=== PATIENT | male | born 1950 | race Caucasian/White ===

== ENCOUNTER 2016-12-23 10:43 | Emergency (ER) | payer MEDICARE, OTHER ==
[2016-12-23 10:51] VITALS: BP 140/95
--- NOTE | 2016-12-23 11:16 | UC ---
Lower Extremity/Ankle HPI - HPI Summary HPI Summary: gout in right foot. has a history of the same. has had pain since yesterday. denies trauma . has had multiple times. pt indulged in steak, seafood and dessert this past week with beer [ End ] - History of Current Complaint Chief Complaint: UCLowerExtremity Stated Complaint: RIGHT FOOT COMPLAINT Time Seen by Provider: 12/23/16 11:09 Hx Obtained From: Patient Onset/Duration: Sudden Onset - Allergies/Home Medications Allergies/Adverse Reactions: Allergies Allergy/AdvReac Type Severity Reaction Status Date / Time Penicillins Allergy Intermediate Hives Verified 12/23/16 10:52 PMH/Surg Hx/FS Hx/Imm Hx Previously Healthy: Yes - Surgical History Surgical History: Yes Surgery Procedure, Year, and Place: hernia repair - Family History Known Family History: Positive: Unknown Negative: Blood Disorder - Social History Occupation: Employed Full-time Lives: With Family Alcohol Use: Weekly Alcohol Amount: few times a week Substance Use Type: None Smoking Status (MU): Never Smoked Tobacco Review of Systems Constitutional: Negative Skin: Negative Eyes: Negative ENT: Negative Respiratory: Negative Cardiovascular: Negative Gastrointestinal: Negative Genitourinary: Negative Motor: Negative Neurovascular: Negative Musculoskeletal: Arthralgia Neurological: Negative Psychological: Negative All Other Systems Reviewed And Are Negative: Yes Physical Exam Triage Information Reviewed: Yes Appearance: Well-Appearing, No Pain Distress Vital Signs: Initial Vital Signs Temp 97.7 F 12/23/16 10:49 Pulse 78 12/23/16 10:49 Resp 14 12/23/16 10:49 BP 140/95 12/23/16 10:49 Pulse Ox 99 12/23/16 10:49 Eye Exam: Normal ENT Exam: Normal Dental Exam: Normal Neck exam: Normal Neck: Positive: 1 Respiratory Exam: Normal Cardiovascular Exam: Normal Musculoskeletal Exam: Normal Neurological Exam: Normal Psychological Exam: Normal Skin Exam: Normal Skin: Positive: Other - right large toe with redness and mild swelling and tenderness to palpation Lower Extremity Course/Dx - Course Course Of Treatment: he will d/w PCP allopurinol and other treatment as he is to go to [place] soon and wants to eat seafood - Differential Dx/Diagnosis Differential Diagnosis/HQI/PQRI: Gout, Sprain, Strain Provider Diagnoses: gout right foot Discharge - Discharge Plan Condition: Good Disposition: HOME Prescriptions: Indomethacin CAP* [Indocin CAP*] 50 mg PO TID PRN #30 cap PRN Reason: Pain Patient Education Materials: Low Purine Diet (ED), Gout (ED) Referrals: Jc Turcios MD [Primary Care Provider] - 3 Days
== END 2016-12-23 11:24 | disposition home or self-care (01) ==
LOC: UCCORT 10:43
DX: M10.071 Idiopathic gout, right ankle and foot (principal); Z88.0 Allergy status to penicillin
CPT/HCPCS: 99212; G0463

== ENCOUNTER 2017-03-05 07:55 | Emergency (ER) | payer MEDICARE, OTHER ==
[2017-03-05 08:15] VITALS: BP 135/83
[2017-03-05] MEDS ORDERED: Indomethacin CAP* 25 MG CAP PO ONE (08:34)
--- NOTE | 2017-03-05 08:53 | RAD ---
HISTORY: Right thumb pain, fall COMPARISONS: June 08, 2014 VIEWS: 4, Frontal, lateral, and oblique views of the first digit of the right hand FINDINGS: BONE DENSITY: Normal. BONES: There is no displaced fracture. JOINTS: There is osteoarthritis of the first CMC, MCP, and interphalangeal joints. ALIGNMENT: There is no dislocation. SOFT TISSUES: Unremarkable. OTHER FINDINGS: None. IMPRESSION: OSTEOARTHRITIS. NO ACUTE OSSEOUS INJURY. IF SYMPTOMS PERSIST, RECOMMEND REPEAT IMAGING.
--- NOTE | 2017-03-05 08:58 | UC ---
Upper Extremity HPI - HPI Summary HPI Summary: 66 year old male with history of fall. also with gout in the past. went to [place] recently and had lobster. RIGHT THUMB INJURY. PT FELL AT HOME ON TUESDAY NIGHT. BROKE HIS FALL WITH HIS RIGHT HAND. THUMB IS RED AND SWOLLEN. ALSO INJURED HIS RIGHT ANKLE BUT THAT IS LESS PAINFUL NOW. PT DOES HAVE A HX OF GOUT. [ End ] - History of Current Complaint Chief Complaint: UCUpperExtremity Stated Complaint: RIGHT HAND COMPLAINT Time Seen by Provider: 03/05/17 08:30 Hx Obtained From: Patient Onset/Duration: Sudden Onset Severity Initially: Mild Severity Currently: Moderate Character: Aching, Stiffness Aggravating Factor(s): Movement Alleviating Factor(s): Ice, OTC Meds Associated Signs And Symptoms: Positive: Swelling, Redness. Negative: Fever Related History: Similar Episode/Dx As - Allergies/Home Medications Allergies/Adverse Reactions: Allergies Allergy/AdvReac Type Severity Reaction Status Date / Time Penicillins Allergy Intermediate Hives Verified 03/05/17 07:59 PMH/Surg Hx/FS Hx/Imm Hx Previously Healthy: Yes Endocrine History: Dyslipidemia - Surgical History Surgical History: Yes Surgery Procedure, Year, and Place: hernia repair - Family History Known Family History: Positive: Unknown Negative: Blood Disorder - Social History Occupation: Employed Full-time Lives: With Family Alcohol Use: Weekly Alcohol Amount: few times a week Substance Use Type: None Smoking Status (MU): Never Smoked Tobacco Review of Systems Motor: Decreased ROM Musculoskeletal: Arthralgia, Decreased ROM Is Patient Immunocompromised?: No All Other Systems Reviewed And Are Negative: Yes Physical Exam Triage Information Reviewed: Yes Appearance: Well-Appearing, Well-Nourished Vital Signs: Initial Vital Signs Temp 98.3 F 03/05/17 08:00 Pulse 75 03/05/17 08:00 Resp 18 03/05/17 08:00 BP 135/83 03/05/17 08:00 Pulse Ox 96 03/05/17 08:00 Vital Signs Reviewed: Yes Eye Exam: Normal Respiratory Exam: Normal Cardiovascular Exam: Normal Neurological Exam: Normal Psychological Exam: Normal Skin: Positive: Other - right thumb redness and swelling with reduced ROM in all planes. no anatomic snuff box pain. cap refill < 3 sec. peripheral pulses brisk Upper Extremity Course/Dx - Course Course Of Treatment: combo of sprain from fall, and gout likely from recent lobster and sugary drinks-- advised for diet changes - Differential Dx/Diagnosis Differential Diagnosis/HQI/PQRI: Fracture (Closed), Strain, Sprain Provider Diagnoses: Gout right thumb/ thumb sprain after fall Discharge - Discharge Plan Condition: Good Disposition: HOME Prescriptions: Indomethacin CAP* [Indocin CAP*] 50 mg PO TID PRN #15 cap PRN Reason: gout pain Patient Education Materials: Gout (ED), Low Purine Diet (ED) Referrals: Jc Turcios MD [Primary Care Provider] - 3 Days
== END 2017-03-05 08:59 | disposition home or self-care (01) ==
LOC: UCCORT 07:55
DX: M10.9 Gout, unspecified (principal); S63.601A Unspecified sprain of right thumb, initial encounter; E78.5 Hyperlipidemia, unspecified; Z88.0 Allergy status to penicillin; W19.XXXA Unspecified fall, initial encounter; Y92.009 Unspecified place in unspecified non-institutional (private) residence as the place of occurrence of the external cause
CPT/HCPCS: 99211; A9270-GY; G0463

== ENCOUNTER 2017-08-13 10:26 | Emergency (ER) | payer MEDICARE, OTHER ==
--- OUTSIDE RECORDS SUMMARY | 2017-08-13 10:38 | XMS REPORT ---
:1950 External Reference #:[id number] Author Organization [facility] 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 Part [facility] Policy Number: [id number] [employer] Hand[employer] Benefit Plan Jose Manuel Jiménez Group Number: [id number] [address] Group Name: [id number] [place] [address] PayID: [id number] Problems Date Description Provider Status Onset: 06/14/2013 Inguinal hernia without Sesaropher Lory Goldsmith M.D. Active obstruction AND without gangrene Family History Date Family Member(s) Problem(s) Comments General Non Contributory Mother Cancer First Sister Cancer Social History Type Date Description Comments Lives With Diet Patient follows no dietary restrictions Occupation Retired ADL's/IADL's Independent with all ADL's Cigarette Use Never Smoked Cigarettes ETOH Use Currently consumes alcohol socially Smoking Patient has never smoked Daily Caffeine Current Caffeine User soda Daily Caffeine Consumes on average 2 sodas per day Allergies, Adverse Reactions, Alerts Date Description Reaction Status Severity Comments 05/11/2013 Penicillin active Medications Medication Date Status Form Strength Qnty SIG Indications Ordering Provider Multi-Day 00/00/ Active Tablets 1 by Unknown Vitamins 0000 mouth every day Rosuvastatin / Active Tablets 10mg take 1 by Unknown Calcium 0000 mouth at bedtime Ibuprofen 08/10/ Hx Tablets 600mg 30tabs 1 po q6h [place] 2013 prn pain H. use as first Caitlyn Goldsmith line pain control, do not take with other NSAIDs Crestor / Hx Tablets 10mg 30tabs 1 po qd Unknown 0000 - 2017 Lyrica / Hx Capsules 150mg po bid Unknown 0000 Hydrocodone / Hx Tablets 5-325mg 30tabs 1 tab by Unknown Bitartrate/Wilbert 0000 mouth taminophen every 4 hours as needed Meloxicam / Hx Tablets 7.5mg 20tabs 1 po qd Unknown 0000 Tramadol HCL / Hx Tablets ER 300mg Unknown ER 0000 24HR Indomethacin / Hx Capsules 25mg 1 tab by Unknown 0000 - mouth three 2018 times a day for 5-7 days Vital Signs Date Vital Result Comment 06/30/2017 BP Systolic 160 mmHg BP Diastolic 79 mmHg Heart Rate 79 /min Height 71 inches 5'11" Weight 203.00 lb BMI (Body Mass Index) 28.3 kg/m2 BSA (Body Surface Area) 2.12 m2 [place] body weight in kilograms 78 10/01/2014 Heart Rate 76 /min Respiratory Rate 19 /min Height 71 inches 5'11" Weight 199.00 lb BMI (Body Mass Index) 27.8 kg/m2 BSA (Body Surface Area) 2.10 m2 06/14/2013 BP Systolic Sitting Right Arm 122 mmHg BP Diastolic Sitting Right Arm 76 mmHg Heart Rate 92 /min Respiratory Rate 20 /min Height 71 inches 5'11" Weight 192.00 lb BMI (Body Mass Index) 26.8 kg/m2 BSA (Body Surface Area) 2.07 m2 Results Test Date Test Result H/L Range Note Laboratory test finding 08/10/2013 Lipoma Of Cord See Note 1 Comprehensive Metabolic Panel 08/01/2013 Glucose 74 mg/dL Low 76-115 BUN 9 mg/dL 5-23 Creatinine 1.0 mg/dL 0.5-1.4 Glom Filtration Rate, Estimate >60 mL/min >60 If >60 mL/min >60 2 BUN/Creat 9.0 ratio Sodium 140 mmol/L 136-145 Potassium 4.0 mmol/L 3.5-5.1 Chloride 108 mmol/L High 98-107 Carbon Dioxide 30 mEq/L High 18-29 Anion Gap 6 mEq/L Low 8-16 Calcium 9.1 mg/dL 8.5-10.1 Total Protein 7.9 g/dL 6.3-8.0 Albumin 4.3 g/dL 3.5-5.0 Globulin 3.6 g/dL 1.9-4.3 Alb/Glob 1.2 ratio Bilirubin,Total 0.4 mg/dL 0.2-1.2 Sgot/Ast 22 U/L 16-40 SGPT/Alt 29 U/L Low 30-65 Alkaline Phosphatase 92 U/L 50-136 CBC 08/01/2013 White Blood Count 9.8 K/uL 3.4-10.5 Red Blood Count 5.19 M/uL 4.20-5.80 Hemoglobin 15.9 gm/dL 12.8-17.0 Hematocrit 46.6 % 38.0-48.0 Mean Cell Volume 89.8 fl 80.0-96.0 Mean Corpuscular HGB 30.6 pg 27.0-33.0 Mean Corpuscular HGB Conc 34.1 g/dL 31.7-36.0 Platelet Count 234 K/uL 150-400 Red Cell Distri Width %CV 12.5 % 11.6-15.8 Mean Platelet Volume 8.6 fL 6.6-10.6 1 OPERATION/PROCEDURE Left inguinal hernia repair DIAGNOSIS: "CORD LIPOMA, LEFT INGUINAL HERNIA REPAIR": MATURE ADIPOSE TISSUE, CONGESTED. BART/tammy GROSS The specimen is received in formalin labeled, "CORD LIPOMA" and consists of two pieces of soft yellow adipose tissue measuring 6.0 x 3.4 x 1.0 cm. and 11.5 x 5.0 x 1.0 cm. The specimen is serially sectioned and on cut section it reveals yellow-perez soft unremarkable adipose tissue. Belt Picker sections are submitted from each piece in one block. BART/tammy MICROSCOPIC Sections reveal mature adipose tissue with congestion. PRE OPERATIVE DIAGNOSIS Left inguinal hernia REVIEW CODE CODE: I Signed Electronically signed RACHEL MARTINEZ MD 08/13/13 1329 2 Note: Persistent reduction for 3 months or more in an eGFR <60 mL/min/1.73 m2 defines CKD. Patients with eGFR values >/=60 mL/min/1.73 m2 may also have CKD if evidence of persistent proteinuria is present. The original MDRD equation for estimated GFR is not valid for patients less than 18 years of age. Additional information may be found at www.kdo[facility].org. Procedures Date CPT Code Description Status 10/07/2014 57313 ECHO Transthoracic Inc Performance Continuous Completed Electrocardio 10/01/2014 21768 EKG-Tracing And Report Completed 08/10/2013 00088 Repair Initial Inguinal Hernia/ Age 5 Or Over/Reducible Completed 08/10/2013 28699 Anesthesia, Repair Hernia Lower Abdomen Completed 08/01/2013 02767 EKG Interpretation And Report Only Completed Encounters Type Date Location Provider CPT E/M Dx Office Visit 06/30/2017 Surgical Office [place] [address] R10.9 10:15a Caitlyn Goldsmith Office Visit 10/01/2014 [place] [address] [phone] 8:40a 401.1 272.2 Office Visit 06/14/2013 10:30a Surgical Office [place], [address] [phone] Caitlyn Plan of Care 06/30/2017 - [place] Goldsmith M.D.R10.9 Unspecified abdominal painComments:Deferred to primary care; suspect radiculopathy L1 left.Acute general surgical assessment or additional intervention for this at this time not necessary or helpful. Diagrams used to the cystic exploration and questions addressed to his satisfaction.
[2017-08-13 10:43] VITALS: BP 145/82
[2017-08-13] MEDS ORDERED: Indomethacin CAP* 25 MG CAP PO ONE (10:58)
--- NOTE | 2017-08-13 10:58 | UC ---
Lower Extremity/Ankle HPI - HPI Summary HPI Summary: Sudden return of gout right great toe--pain and swelling redness in mtj--hx of gout has no Indocin (which works well for him) - History of Current Complaint Chief Complaint: UCLowerExtremity Stated Complaint: RT FOOT RECHECK (GOUT) Time Seen by Provider: 08/13/17 10:52 Hx Obtained From: Patient Onset/Duration: Sudden Onset, Lasting Days Severity Initially: Severe Severity Currently: Severe Pain Intensity: 8 Pain Scale Used: 0-10 Numeric Aggravating Factor(s): Standing, Ambulation Alleviating Factor(s): Nothing Able to Bear Weight: Yes - Allergies/Home Medications Allergies/Adverse Reactions: Allergies Allergy/AdvReac Type Severity Reaction Status Date / Time Penicillins Allergy Hives Verified 08/13/17 10:40 PMH/Surg Hx/FS Hx/Imm Hx Previously Healthy: No Endocrine History: Dyslipidemia - Surgical History Surgical History: Yes Surgery Procedure, Year, and Place: hernia repair - Family History Known Family History: Positive: Unknown Negative: Blood Disorder - Social History Occupation: Retired Lives: With Family Alcohol Use: Weekly Alcohol Amount: few times a week Substance Use Type: None Smoking Status (MU): Never Smoked Tobacco Review of Systems Constitutional: Negative Skin: Negative Eyes: Negative ENT: Negative Respiratory: Negative Cardiovascular: Negative Gastrointestinal: Negative Genitourinary: Negative Motor: Decreased ROM - right great toe Neurovascular: Negative Musculoskeletal: Negative - great toe, Arthralgia Neurological: Negative Psychological: Negative Is Patient Immunocompromised?: No All Other Systems Reviewed And Are Negative: Yes Physical Exam Triage Information Reviewed: Yes Appearance: Well-Appearing, Well-Nourished, Pain Distress Vital Signs: Initial Vital Signs Temp 98.3 F 08/13/17 10:38 Pulse 92 08/13/17 10:38 Resp 16 08/13/17 10:38 BP 145/82 08/13/17 10:38 Pulse Ox 98 08/13/17 10:38 Vital Signs Reviewed: Yes Eye Exam: Normal Eyes: Positive: Conjunctiva Clear ENT Exam: Normal ENT: Positive: Normal ENT inspection, Hearing grossly normal. Negative: Trismus , Muffled voice, Hoarse voice Dental Exam: Normal Neck exam: Normal Neck: Positive: Supple, Nontender Respiratory Exam: Normal Respiratory: Positive: Chest non-tender, No respiratory distress, No accessory muscle use Cardiovascular Exam: Normal Cardiovascular: Positive: Pulses Normal, Brisk Capillary Refill Musculoskeletal Exam: Normal Musculoskeletal: Positive: Strength Intact, ROM Intact, Edema @ - right great toe Neurological Exam: Normal Neurological: Positive: Alert, Muscle Tone Normal Psychological Exam: Normal Skin Exam: Normal Lower Extremity Course/Dx - Course Course Of Treatment: indocin, follow with pcp on Tuesday as planned - Differential Dx/Diagnosis Provider Diagnoses: Gout right great toe Discharge - Discharge Plan Condition: Stable Disposition: HOME Prescriptions: Indomethacin CAP* [Indocin CAP*] 25 - 50 mg PO TID PRN #40 cap PRN Reason: gout pain Patient Education Materials: Low Purine Diet (ED), Gout (ED), Hypertension (ED) Referrals: Jc Turcios MD [Primary Care Provider] - 08/15/17
== END 2017-08-13 11:13 | disposition home or self-care (01) ==
LOC: UCCORT 10:26
DX: M10.9 Gout, unspecified (principal); Z88.0 Allergy status to penicillin
CPT/HCPCS: 99212; A9270-GY; G0463

== ENCOUNTER 2017-09-26 07:44 | Emergency (ER) | payer MEDICARE, OTHER ==
[2017-09-26 08:04] VITALS: BP 154/102
--- NOTE | 2017-09-26 08:13 | UC ---
Skin Complaint HPI - HPI Summary HPI Summary: Pt presents with c/o of possible tick bite to scrotum. Pt noticed tender bump on scrotum this morning. He reports that he had been working outside during the day on 09/24/17. Pt removed insect/tick this morning with tweezers. He is concerned that "there is still a piece in there" - History of Current Complaint Chief Complaint: UCSkin Time Seen by Provider: 09/26/17 08:05 Stated Complaint: TICK Hx Obtained From: Patient Onset/Duration: Sudden Onset, Still Present Skin Exposure Onset/Duration: Days Ago Timing: Constant Onset Severity: Mild Current Severity: Mild Pain Intensity: 2 Location: Discrete Character: Redness, Painful Aggravating Factor(s): Touch Alleviating Factor(s): Unknown Associated Signs & Symptoms: Positive: Tenderness Related History: Insect Bite/Sting - Allergy/Home Medications Allergies/Adverse Reactions: Allergies Allergy/AdvReac Type Severity Reaction Status Date / Time Penicillins Allergy Hives Verified 08/13/17 10:40 Home Medications: Home Medications Allopurinol TAB* [Zyloprim 100 MG TAB*] 100 mg PO DAILY 09/26/17 [History Confirmed 09/26/17] Colchicine [Mitigare] 0.6 mg PO DAILY 09/26/17 [History Confirmed 09/26/17] Review of Systems Constitutional: Negative Skin: Other - insect bite Eyes: Negative ENT: Negative Respiratory: Negative Cardiovascular: Negative Gastrointestinal: Negative Genitourinary: Negative Motor: Negative Neurovascular: Negative Musculoskeletal: Negative Neurological: Negative Psychological: Negative Is Patient Immunocompromised?: No All Other Systems Reviewed And Are Negative: Yes PMH/Surg Hx/FS Hx/Imm Hx Endocrine History: Dyslipidemia - Surgical History Surgical History: Yes Surgery Procedure, Year, and Place: hernia repair - Family History Known Family History: Positive: Unknown Negative: Blood Disorder - Social History Occupation: Retired Lives: With Family Alcohol Use: Weekly Alcohol Amount: few times a week Substance Use Type: None Smoking Status (MU): Never Smoked Tobacco Have You Smoked in the Last Year: No Physical Exam Triage Information Reviewed: Yes Appearance: Well-Appearing Vital Signs: Initial Vital Signs Temp 98.0 F 09/26/17 07:54 Pulse 81 09/26/17 07:54 Resp 16 09/26/17 07:54 BP 154/102 09/26/17 07:54 Pulse Ox 98 09/26/17 07:54 Vital Signs Reviewed: Yes Eye Exam: Normal ENT: Positive: Hearing grossly normal Respiratory: Positive: No respiratory distress Male Genital Exam: Positive: Erythema - left posterio scrotum, evidence of insect bite. Musculoskeletal Exam: Normal Neurological Exam: Normal Psychological Exam: Normal Skin Exam: Other - insect/tick bite Course/Dx - Differential Diagnoses - Skin Complaint Differential Diagnoses: Tick Born Illness - Diagnoses Provider Diagnoses: insect bite (possible tick bite) Discharge - Sign-Out/Discharge Documenting (check all that apply): Discharge/Admit/Transfer - Discharge Plan Condition: Stable Disposition: HOME Prescriptions: DOXYcycline CAP(*) [DOXYcycline 100MG CAP(*)] 200 mg PO DAILY #2 cap Patient Education Materials: Insect Bite or Sting (ED) Referrals: Jc Turcios MD [Primary Care Provider] - Additional Instructions: Please follow up with our PCP or return to clinic as needed. Please note that your blood pressure was elevated at today's visit. We recommend that you follow up with your PCP immediately regarding this finding. - Billing Disposition and Condition Condition: STABLE Disposition: HOME
== END 2017-09-26 08:24 | disposition home or self-care (01) ==
LOC: UCCORT 07:44
DX: S30.863A Insect bite (nonvenomous) of scrotum and testes, initial encounter (principal); W57.XXXA Bitten or stung by nonvenomous insect and other nonvenomous arthropods, initial encounter; Y92.9 Unspecified place or not applicable
CPT/HCPCS: 99212; G0463

== ENCOUNTER 2019-05-09 07:54 | Emergency (ER) | payer MEDICARE, OTHER ==
[2019-05-09 08:11] VITALS: BP 145/89
--- NOTE | 2019-05-09 08:23 | UC ---
Hand/Wrist HPI - HPI Summary HPI Summary: left hand pain x 1 day sudden onset , pain is 8 out of 10 no known injury + swelling, redness, warm to touch no fever, no chills hx of Gout - History Of Current Complaint Chief Complaint: UCUpperExtremity Stated Complaint: LEFT HAND-POSS. GOUT Time Seen by Provider: 05/09/19 08:05 Hx Obtained From: Patient Onset/Duration: Sudden Onset, Lasting Days - 1, Still Present Severity Initially: Moderate Severity Currently: Moderate Pain Intensity: 8 Character Of Pain: Throbbing Aggravating Factor(s): Movement Alleviating Factor(s): Nothing Associated Signs And Symptoms: Positive: Swelling, Redness. Negative: Bruising , Fever, Weakness, Numbness/Tingling - Allergies/Home Medications Allergies/Adverse Reactions: Allergies Allergy/AdvReac Type Severity Reaction Status Date / Time bee venom protein (honey bee) Allergy Swelling Verified 05/09/19 08:12 Penicillins Allergy Hives Verified 05/09/19 08:11 Home Medications: Home Medications Naproxen Sodium [Aleve] 220 mg PO BID PRN 05/09/19 [History Confirmed 05/09/19] PMH/Surg Hx/FS Hx/Imm Hx - Additional Past Medical History Additional PMH: high cholesterol lumbar disc injury 1994 GOUT - Surgical History Surgical History: Yes Surgery Procedure, Year, and Place: hernia repair - Family History Known Family History: Positive: Unknown Negative: Blood Disorder - Social History Alcohol Use: Weekly Alcohol Amount: few times a week Substance Use Type: None Smoking Status (MU): Never Smoked Tobacco Have You Smoked in the Last Year: No Review of Systems All Other Systems Reviewed And Are Negative: Yes Constitutional: Positive: Negative Skin: Positive: Negative Eyes: Positive: Negative Is Patient Immunocompromised?: No Physical Exam Triage Information Reviewed: Yes Appearance: Well-Appearing, Well-Nourished, Pain Distress Vital Signs: Initial Vital Signs Temp 98.1 F 05/09/19 08:06 Pulse 80 05/09/19 08:06 Resp 16 05/09/19 08:06 BP 145/89 05/09/19 08:06 Pulse Ox 98 05/09/19 08:06 Vital Signs Reviewed: Yes Eye Exam: Normal Eyes: Positive: Conjunctiva Clear ENT: Positive: Normal ENT inspection, Hearing grossly normal, Pharynx normal Neck: Positive: Supple, Nontender, No Lymphadenopathy Respiratory: Positive: Chest non-tender, Lungs clear, Normal breath sounds Cardiovascular: Positive: RRR, No Murmur, Pulses Normal Musculoskeletal: Positive: Other: - left hand : + swelling, erythema, tender to touch mostly at 2nd MCP joint , limited ROM Hand/Wrist Course/Dx - Course Course Of Treatment: elevated BP: monitor your bp daily , follow up with your pcp - Differential Dx/Diagnosis Provider Diagnosis: Gout of left hand, Elevated BP without diagnosis of hypertension Discharge ED - Sign-Out/Discharge Documenting (check all that apply): Patient Departure All imaging exams completed and their final reports reviewed: No Studies - Discharge Plan Condition: Stable Disposition: HOME Prescriptions: Indomethacin CAP* [Indocin CAP*] 50 mg PO TID PRN #15 cap PRN Reason: Pain - Moderate Patient Education Materials: Gout (ED) Referrals: Jc Turcios MD [Primary Care Provider] - 5 Days - Billing Disposition and Condition Condition: STABLE Disposition: Home
== END 2019-05-09 08:22 | disposition home or self-care (01) ==
LOC: UCCORT 07:54
DX: M10.9 Gout, unspecified (principal); R03.0 Elevated blood-pressure reading, without diagnosis of hypertension; Z88.0 Allergy status to penicillin; Z91.030 Bee allergy status
CPT/HCPCS: 99212; G0463

== ENCOUNTER 2024-03-22 05:52 | Observation (INO) ==
[~2024-03-22 05:52] MED LIST: ROPIVACAINE 5 MG/ML 30 ML BTL (0.5%) ONE
[2024-03-22] MEDS ORDERED: ceFAZolin 2 GM PREMIX 2 GM/50 ML BAG ONE (06:14)
[2024-03-22] MEDS ORDERED: Tranexamic Acid 1 GM/100ML BAG 2,000 MG/200 ML BAG IV ONE (06:14)
[2024-03-22] MEDS ORDERED: Lidocaine 2% PF 5 ML VIAL ONE (07:04)
[2024-03-22] MEDS ORDERED: Propofol 10 MG/ML 20 ML BTL ONE ×2 (07:04→09:44)
[2024-03-22] MEDS ORDERED: Rocuronium 50 mg VIAL 10 mg/ml 5 ml VIAL (50 mg) ONE ×2 (07:04→08:16)
[2024-03-22] MEDS ORDERED: Midazolam 2 mg/2 ml VIAL 1 mg/ml 2 ml VIAL (2 mg) ONE (07:05)
[2024-03-22] MEDS ORDERED: fentaNYL 100 mcg/2 ml 50 MCG/ML VIAL ONE ×3 (07:05→10:54)
[2024-03-22] MEDS ORDERED: Phenylephrine IV 10 MG/ML 1 ml VIAL ONE ×2 (07:05→09:45)
[2024-03-22] MEDS ORDERED: Sodium Chloride 0.9% 10 ML ONE (07:05)
[2024-03-22 07:06] LABS: Rapid COVID-19 Molecular Undetected (Undetected)
[2024-03-22] MEDS ORDERED: HYDROmorphone 0.5 MG/0.5 ML SYRINGE ONE ×2 (07:55→09:43)
[2024-03-22] MEDS ORDERED: Ondansetron 4 mg VIAL 2 MG/ML 2 ml VIAL ONE (07:57)
[2024-03-22] MEDS ORDERED: Dexamethasone IV 4 MG/ML VIAL 1 ml VIAL ONE (07:57)
[2024-03-22] MEDS ORDERED: Acetaminophen IV 1 GM/100ML 1,000 MG/100 ML BAG IV ONE (08:35)
[2024-03-22] MEDS ORDERED: Ondansetron ODT 4 mg TAB 4 MG TAB PO PRN (10:10)
[2024-03-22] MEDS ORDERED: Magnesium Hydroxide LIQ 30 ML UDC PO PRN (10:10)
[2024-03-22] MEDS ORDERED: Calcium Carb (TUMS) 500 mg CHEW TAB PO PRN (10:10)
[2024-03-22] MEDS ORDERED: Lactulose 30 ml UDC PO PRN (10:10)
[2024-03-22] MEDS ORDERED: Morphine 2 MG/ML SYRINGE IV PRN (10:10)
[2024-03-22] MEDS ORDERED: Ondansetron 4 mg VIAL 2 MG/ML 2 ml VIAL IV PRN ×2 (10:10→10:20)
[2024-03-22] MEDS ORDERED: Metoclopramide 5 MG/ML VIAL (10 mg) IV PRN (10:20)
[2024-03-22] MEDS ORDERED: Naloxone 0.4 mg VIAL 0.4 mg/ml 1 ml VIAL IV PRN (10:20)
[2024-03-22] MEDS: fentaNYL 100 mcg/2 ml 50 MCG/ML VIAL IV PRN (10:35)
[2024-03-22] MEDS ORDERED: NS 0.45% 1000 ml BAG 1,000 ML IV SCH (11:00)
[2024-03-22] MEDS: Lactated Ringers 1000 ml BAG 1,000 ML IV SCH ×2 (12:00→12:31)
[2024-03-22] MEDS: Buffered Lidocaine 1% SYRIN 1 ml INTRADERM ONE (12:30)
[2024-03-22] MEDS: Scopolamine 1 mg/72hr PATCH TRANSDERM ONE (12:30)
[2024-03-22] MEDS: Acetaminophen IV 1 GM/100ML 1,000 MG/100 ML BAG IV ONE (12:30)
[2024-03-22 13:53] VITALS: BP 124/74
[2024-03-22] MEDS: ceFAZolin 2 GM PREMIX 2 GM/50 ML BAG IV SCH (15:15)
[2024-03-22] MEDS ORDERED: Magnesium Hydroxide LIQ 30 ML UDC PO SCH (21:00)
[2024-03-23] MEDS ORDERED: Vitamin THERAPEUTIC TAB PO SCH (09:00)
== END 2024-03-22 16:41 | disposition home or self-care (01) ==
LOC: SSU 05:52 → ICU 05:52 → OR 05:52
PROVIDERS: ADMIT Orthopaedic Surgery Adult Reconstructive Orthopaedic Surgery; ATTEND Orthopaedic Surgery Adult Reconstructive Orthopaedic Surgery